=== PATIENT | female | born 1960 | race American Indian/Alaskan Native ===

== ENCOUNTER 2018-05-19 10:11 | Day surgery (SDC) | payer OTHER ==
[2018-05-11 11:15] VITALS: BMI 40.1
[~2018-05-19 10:11] MED LIST: Dextrose 5%/0.45% NS 1,000 ML IV SCH; Morphine 10 mg/5 ml Oral Soln PO PRN
[2018-05-19] MEDS ORDERED: Propofol 10 mg/ml Inj (20 ML) ONE (11:23)
[2018-05-19] MEDS ORDERED: Midazolam 2 MG/2 ML VIAL ONE (11:25)
[2018-05-19] MEDS ORDERED: ceFAZolin 1 gm FROZEN Premix 1 GM/50 ML ML IVPB ONE (11:34)
[2018-05-19] MEDS ORDERED: HYDROmorphone 0.5 mg/0.5 ml ISec IVP PRN (12:18)
[2018-05-19] MEDS ORDERED: Lactated Ringer's 500 ML IV ONE (12:18)
[2018-05-19 14:10] VITALS: RESP 18
[2018-05-19 14:53] VITALS: O2SAT 96
[2018-05-19 16:23] VITALS: BP 132/65; PULSE 53; TEMP 97.6
--- NOTE | 2018-05-19 22:23 | OP ---
PROCEDURE DATE: 05/19/2018 PREOPERATIVE DIAGNOSIS: Chronic tonsillitis. POSTOPERATIVE DIAGNOSIS: Chronic tonsillitis. PROCEDURE: Tonsillectomy. SURGEON: Papo Meraz MD SIGNIFICANT FINDINGS: 2+ tonsils. DESCRIPTION OF PROCEDURE: The patient was brought into the room and placed in supine position. Anesthesia was initiated through an ET tube. The patient was draped in the usual manner. Mouth gag was placed in the oral cavity, opened and suspended on the [employer] technician the usual manner. Right tonsil was grabbed, pulled medially. Incision was made in the anterior tonsillar pillar using coblation. Dissection was done between tonsil and tonsillar fossa using coblation until the tonsil was removed. Bleeding was controlled using coblation. Next, the other tonsil was grabbed, pulled medially. Incision was made in the anterior tonsillar pillar using coblation. Dissection was done between tonsil and tonsillar fossa using coblation until the tonsil was removed. Bleeding was controlled using coblation. Both tonsillar beds were rubbed vigorously with a coblation wand. No bleeding was noted. Mouth gag was let down for 30 seconds, put back up, no bleeding was noted. Mouth gag was taken out and removed. The patient was taken off anesthesia and taken to recovery room in a stable manner. Papo Meraz MD
== END 2018-05-19 16:15 | disposition home or self-care (01) ==
LOC: C.SDS 10:11
PROVIDERS: ATTEND Otolaryngology
DX: J35.01 Chronic tonsillitis (principal)
CPT/HCPCS: 42826; 88304; J0690; J1100; J1170; J2250; J2704; J3010; J7120